=== PATIENT | female | born 1985 | race Caucasian/White ===

== ENCOUNTER 2024-03-30 08:02 | Day surgery (SDC) | payer OTHER, SELFPAY ==
[2024-03-30] VITALS (8 sets, daily range): BP systolic 123–149; BP diastolic 66–101; BMI 39.6
[2024-03-30] MEDS: NORMOSOL-R 1000 IV (12:13)
[2024-03-30] MEDS: TRANSDERM-SCOP 1 PATCH TRANSDERM (12:46)
[2024-03-30] MEDS: DILAUDID 0.25 MG IV ×2 (14:54→15:14)
== END 2024-03-30 16:30 | disposition home or self-care (01) ==
LOC: SDS 08:02
PROVIDERS: ATTENDING PHYSICIAN Otolaryngology Facial Plastic Surgery
DX: J35.01 Chronic tonsillitis (principal)
CPT/HCPCS: 42826; 88304